=== PATIENT | female | born 1985 | race Caucasian/White ===

== ENCOUNTER → 2016-03-17 | Outpatient (CLI) | payer OTHER ==
[~2016-03-17] MED LIST: ACETAMINOPHEN TAB 325 MG TAB PO ONE; INFLIXIMAB IV ONE; LORATADINE 10 MG TAB PO ONE; SODIUM CHLORIDE 0.9% 250 ML in EMPTY BAG 1 BAG IV PRN; SODIUM CHLORIDE 0.9% 500 ML in EMPTY BAG 1 BAG IV PRN; SODIUM CHLORIDE 0.9% IV ONE
[2016-03-17 09:03] VITALS: TEMP 97.6
[2016-03-17 11:09] VITALS: BP 115/79; PULSE 76; RESP 18
== END | disposition home or self-care (01) ==
LOC: PROCWHC3 08:52
PROVIDERS: ATTEND Dermatology
DX: L40.9 Psoriasis, unspecified (principal); L40.52 Psoriatic arthritis mutilans
CPT/HCPCS: 96361; 96413; 96415; J1745

== ENCOUNTER → 2016-07-26 | Outpatient (CLI) | payer OTHER ==
[~2016-07-26] MED LIST changes: +PATIENTS OWN MED ONE
[2016-07-26 09:17] VITALS: RESP 16; TEMP 97.7
[2016-07-26 11:40] VITALS: BP 115/74; PULSE 71
== END | disposition home or self-care (01) ==
LOC: PROCWHC3 08:46
PROVIDERS: ATTEND Dermatology
DX: L40.52 Psoriatic arthritis mutilans (principal)
CPT/HCPCS: 96413; 96415

== ENCOUNTER → 2016-12-20 | Outpatient (CLI) | payer OTHER ==
[~2016-12-20] MED LIST changes: -PATIENTS OWN MED ONE; -SODIUM CHLORIDE 0.9% 250 ML in EMPTY BAG 1 BAG IV PRN
[2016-12-20 09:14] VITALS: RESP 16; TEMP 98.3
[2016-12-20] MEDS: INFLIXIMAB IV ONE ×2 (09:43→09:46)
[2016-12-20] MEDS: SODIUM CHLORIDE 0.9% IV ONE ×2 (09:43→09:46)
[2016-12-20 10:52] VITALS: BP 118/76; PULSE 90
== END | disposition home or self-care (01) ==
LOC: EDSTATUS 12-14 09:00 → PROCWHC3 08:59
PROVIDERS: ATTEND Dermatology
DX: L40.0 Psoriasis vulgaris (principal); L40.59 Other psoriatic arthropathy
CPT/HCPCS: 96413; 96415

== ENCOUNTER → 2017-03-16 | Outpatient (CLI) | payer OTHER ==
[2017-03-16 23:23] VITALS: BP 110/66; PULSE 91; RESP 16; TEMP 98.3
== END | disposition home or self-care (01) ==
LOC: PROCWHC3 09:48
PROVIDERS: ATTEND Dermatology
DX: L40.0 Psoriasis vulgaris (principal); L40.59 Other psoriatic arthropathy
CPT/HCPCS: 96413; 96415

== ENCOUNTER → 2017-05-18 | Outpatient (CLI) | payer OTHER ==
[~2017-05-18] MED LIST changes: -INFLIXIMAB IV ONE; -SODIUM CHLORIDE 0.9% IV ONE
[2017-05-18 12:04] VITALS: RESP 16; TEMP 98.4
[2017-05-18 13:39] VITALS: BP 134/92; PULSE 93
== END | disposition home or self-care (01) ==
LOC: PROCWHC3 11:31
PROVIDERS: ATTEND Dermatology
DX: L40.0 Psoriasis vulgaris (principal)

== ENCOUNTER → 2017-07-13 | Outpatient (CLI) | payer OTHER | END | disposition home or self-care (01) | LOC: PROCWHC3 08:57 | PROVIDERS: ATTEND Dermatology | DX: Z53.9 Procedure and treatment not carried out, unspecified reason (principal) ==

== ENCOUNTER → 2018-10-09 | Outpatient (CLI) | payer OTHER ==
--- NOTE | 2018-10-09 15:00 | MR ---
MR right wrist without contrast HISTORY: Pain and swelling, scaphoid fracture Multiplanar multisequence imaging obtained through the right wrist No comparisons There is abnormal signal involving the distal radius, linear low signal is present along the metaphys is extending to the articular surface, there is intermediate signal on T1, increased signal on T2 inv olving the metaphysis somewhat diffusely. Similar signal changes are present within the scaphoid bone , findings likely represent bone contusion, microtrabecular fracture, suspect a nondisplaced intra-ar ticular fracture line along the distal radius. Scapholunate ligament, lunotriquetral ligament, triang ular fibrocartilage are intact. Flexor and extensor tendons are intact. There is fluid signal coursin g along the extensor tendons laterally which may be posttraumatic. There is some edema in the soft ti ssues dorsal to the wrist. IMPRESSION: Microtrabecular fractures, bone contusion as described involving the scaphoid, distal rad ius, there is nondisplaced intra-articular fracture of the distal radius.
== END | disposition home or self-care (01) ==
LOC: RADMRIMAIN 11:57
PROVIDERS: ATTEND Orthopaedic Surgery
DX: S52.571A Other intraarticular fracture of lower end of right radius, initial encounter for closed fracture (principal)

== ENCOUNTER → 2019-03-02 | Outpatient (CLI) | payer OTHER ==
--- NOTE | 2019-03-03 11:53 | US ---
EXAMINATION TYPE: US thyroid st tissue head/neck DATE OF EXAM: 03/02/2019 COMPARISON: NONE CLINICAL HISTORY: R13.10 Dysphagia. Dysphagia GLAND SIZE: Right Lobe: 5.5 x 1.4 x 1.9 cm Overall Parenchyma: homogenous Left Lobe: 5.4 x 1.4 x 1.8 cm Overall Parenchyma: homogeneous Isthmus Thickness: .2 cm NODULES RIGHT: # of nodules measured on right: A couple sub centimeter cystic areas. LEFT: # of nodules measured on left: 0 ISTHMUS: # of nodules measured in the isthmus: 0 Bilateral neck scanned, no evidence of lymphadenopathy. Echotexture is relatively homogenous and symmetric within the thyroid gland. IMPRESSION: There are likely to small colloid cysts subcentimeter in size in the right lobe of thyroid
== END | disposition home or self-care (01) ==
LOC: RADUSWWP 15:41
PROVIDERS: ATTEND Family Medicine
DX: E04.2 Nontoxic multinodular goiter (principal)
CPT/HCPCS: 76536

== ENCOUNTER → 2019-08-27 | Outpatient (CLI) | payer BC ==
--- NOTE | 2019-08-27 21:41 | MR ---
EXAMINATION TYPE: MR shoulder RT wo con DATE OF EXAM: 08/27/2019 COMPARISON: No plain film submitted for correlation HISTORY: Rt shoulder pain x 1 month TECHNIQUE: Multiplanar, multisequence imaging of the right shoulder is performed without contrast. FINDINGS: There is motion on the exam. Rotator Cuff: There is some increased signal associated with the rotator cuff tendon Acromioclavicular Joint: Intact, some mild arthropathy may be present, some fluid signal is noted Glenohumeral Joint: Intact Labrum: Suspect a Austin complex is present.. Biceps Tendon: The long head of biceps is in normal location within bicipital groove, some fluid sign al present along the tendon. Bone marrow signal: No focal abnormal marrow signal is appreciated. Other: Some fluid signal present in the subacromial subdeltoid bursa IMPRESSION: Suspect biceps tendinosis, tendinosis of the rotator cuff tendon. Additional findings above.
== END | disposition home or self-care (01) ==
LOC: RADMRIMAIN 18:56
PROVIDERS: ATTEND Family Medicine
DX: M25.811 Other specified joint disorders, right shoulder (principal)

== ENCOUNTER → 2020-11-21 | Outpatient (CLI) | payer BC ==
--- NOTE | 2020-11-21 10:22 | US ---
EXAMINATION TYPE: US thyroid st tissue head/neck DATE OF EXAM: 11/21/2020 COMPARISON: NONE CLINICAL HISTORY: R22.0 Swelling/mass/palpable abnormality head/neck. dysphagia GLAND SIZE: Right Lobe: 5.6 x 1.9 x 2.2 cm Overall Parenchyma: heterogenous Left Lobe: 5.6 x 1.6 x 1.8 cm Overall Parenchyma: heterogeneous Isthmus Thickness: 0.3 cm NODULES RIGHT: # of nodules measured on right: 0 - subcentimeter nodules noted LEFT: # of nodules measured on left: 0 ISTHMUS: # of nodules measured in the isthmus: 0 Bilateral neck scanned, no evidence of lymphadenopathy. IMPRESSION: Thyridomegally
--- NOTE | 2020-11-21 10:39 | FL ---
EXAMINATION TYPE: FL UGI air DATE OF EXAM: 11/21/2020 10:29 AM COMPARISON: NONE CLINICAL HISTORY: R13.10 Dysphagia A total of 58 seconds of fluoroscopic time was utilized during procedure and 17 images obtained. Preliminary view of the abdomen reveals a normal bowel gas pattern. Mild degenerative changes are not ed of the thoracolumbar spine. Upper GI examination was performed according to the air contrast techn ique. Barium and effervescent crystal was swallowed without difficulty or delay. Esophageal perista lsis and motility are within normal limits. There is moderate gastroesophageal reflux during the cour se of the examination. No evidence for esophagitis. Small reducible hiatal hernia identified. The sto mach has a normal appearance in terms of its size, shape and location. No gastric filling defects or ulcer craters are seen. The duodenal bulb and sweep are also free of intraluminal lesion or ulcer c rater. IMPRESSION: There is moderate gastroesophageal reflux during the course of the examination. No evidence for esoph agitis. Small reducible hiatal hernia identified.
== END | disposition home or self-care (01) ==
LOC: RADUSWWP 09:00
PROVIDERS: ATTEND Family Medicine
DX: E01.0 Iodine-deficiency related diffuse (endemic) goiter (principal)
CPT/HCPCS: 74246; 76536

== ENCOUNTER 2022-12-12 10:29 | Emergency (ER) | payer BC ==
[2022-12-12] MEDS ORDERED: SODIUM CHLORIDE 0.9% 1,000 ML IV STA (11:12)
[2022-12-12] MEDS ORDERED: KETOROLAC 15 MG/ML 1 ML VIAL IVP STA (11:53)
--- NOTE | 2022-12-12 11:54 | ED ---
General Adult HPI - General Chief complaint: Headache Stated complaint: High Heart Rate Time Seen by Provider: 12/12/22 11:07 Source: patient Mode of arrival: ambulatory Limitations: no limitations - History of Present Illness Initial comments: 37-year-old female with a past medical history significant for lysis on infliximab presenting to the ED with a chief complaint of URI symptoms. Patient states for the past 3 days has had headache and congestion. Has been using Cordiicin with minimal relief of symptoms. She then went to an urgent care today who sent the patient to this facility for further evaluation due to elevated heart rate. Patient notes that she has not taken her venlafaxine or losartan yet today. No chest pain or shortness of breath. No other complaints. - Related Data Home Medications Medication Instructions Recorded Confirmed DULoxetine HCL [Cymbalta] 60 mg PO DAILY 04/23/15 07/13/17 Non Formulary Drug 1 tab PO DIRECTED 05/18/17 07/13/17 Cephalexin [Keflex] 500 mg PO BID 07/13/17 07/13/17 Fish Oil/Dha/Epa [Fish Oil 1,200 1 each PO DAILY 07/13/17 07/13/17 mg Fish Oil] Iron 27 mg PO DAILY 07/13/17 07/13/17 Allergies Allergy/AdvReac Type Severity Reaction Status Date / Time morphine Allergy Rash/Hives Verified 12/12/22 10:46 naproxen [From Naprosyn] Allergy Rash/Hives Verified 12/12/22 10:46 Review of Systems ROS Statement: Those systems with pertinent positive or pertinent negative responses have been documented in the HPI. ROS Other: All systems not noted in ROS Statement are negative. Past Medical History Past Medical History: Hypertension, Skin Disorder Additional Past Medical History / Comment(s): PSORIATIC ARTHRITIS History of Any Multi-Drug Resistant Organisms: None Reported Past Surgical History: Orthopedic Surgery Past Anesthesia/Blood Transfusion Reactions: No Reported Reaction Past Psychological History: Depression Smoking Status: Never smoker Past Alcohol Use History: Rare Past Drug Use History: None Reported General Exam Limitations: no limitations General appearance: alert, in no apparent distress Eye exam: Present: PERRL, EOMI Neck exam: Present: other (Negative Kernig or Brudzinski sign) Respiratory exam: Present: normal lung sounds bilaterally Cardiovascular Exam: Present: regular rate, normal rhythm GI/Abdominal exam: Present: soft Extremities exam: Present: other (Strength and sensation equal and intact in bilateral upper and lower extremities.) Neurological exam: Present: alert, oriented X3, CN II-XII intact (Finger to nose, rapid alternating hand movements, [id number] intact.) Course Vital Signs 12/12/22 12/12/22 12/12/22 10:40 12:10 13:02 Temperature 98.1 F 99.1 F Pulse Rate 118 H 101 H 106 H Respiratory 18 18 17 Rate Blood Pressure 141/101 143/102 131/88 O2 Sat by Pulse 98 97 100 Oximetry Medical Decision Making - Medical Decision Making Was pt. sent in by a medical professional or institution (, PA, CLIENT ADVISOR, urgent care, hospital, or care home...) When possible be specific @ -[facility] urgent care Did you speak to anyone other than the patient for history (EMS, parent, family, police, friend...)? What history was obtained from this source @ -No Did you review nursing and triage notes (agree or disagree)? Why? @ -I reviewed and agree with nursing and triage notes Were old charts reviewed (outside hosp., previous admission, EMS record, old EKG, old radiological studies, urgent care reports/EKG's, care home records)? Report findings @ -No old charts were reviewed Differential Diagnosis (chest pain, altered mental status, abdominal pain women, abdominal pain men, vaginal bleeding, weakness, fever, dyspnea, syncope, headach e, dizziness, GI bleed, back pain, seizure, CVA, palpatations, mental health, musculoskeletal)? @ -Differential Headache: Migraine, tension, cluster, carbon monoxide, central venous thrombosis, pension karma temporal arteritis, acute closure glaucoma, intercranial hemorrhage, mastoiditis, sinusitis, head injury, this is not meant to be an all-inclusive list. EKG interpreted by me (3pts min.). @ -None X-rays interpreted by me (1pt min.). @ -None done CT interpreted by me (1pt min.). @ -None done U/S interpreted by me (1pt. min.). @ -None done What testing was considered but not performed or refused? (CT, X-rays, U/S, labs)? Why? @ -Chest x-ray was considered to rule out pneumonia however at this time patient has no complaints of cough. Brain CT was considered due to headache jarred ng more severe compared to history of headaches however neurologic exam today unremarkable and patient had significant improvement of pain with Toradol and acetaminophen. What meds were considered but not given or refused? Why? @ -None Did you discuss the management of the patient with other professionals (professionals i.e. , PA, CLIENT ADVISOR, lab, RT, psych nurse, family welfare social work professor, pet care attendant, teacher, hazard mitigation officer, bilingual patient support caseworker)? Give summary @ -No Was smoking cessation discussed for >3mins.? @ -No Was critical care preformed (if so, how long)? @ -No Were there social determinants of health that impacted care today? How? (Homelessness, low income, unemployed, alcoholism, drug addiction, transportation, low edu. Level, literacy, decrease access to med. care, fci, rehab)? @ -No Was there de-escalation of care discussed even if they declined (Discuss DNR or withdrawal of care, Hospice)? DNR status @ -No What co-morbidities impacted this encounter? (DM, HTN, Smoking, COPD, CAD, Cancer, CVA, ARF, Chemo, Hep., AIDS, mental health diagnosis, sleep apnea, morbid obesity)? @ -Psoriasis on Infliximab Was patient admitted / discharged? Hospital course, mention meds given and route, prescriptions, significant lab abnormalities, going to OR and other pertinent info. @ -Discharge 37-year-old female with past medical history significant for psoriasis on infliximab presents to the ED with a chief complaint of headache and congestion ongoing for the past 2 or 3 days. Cephid panel negative. Patient had significant improvement of headache with Toradol and acetaminophen. Patient discharged home in stable condition. Symptoms likely viral in nature. Discussed return precautions with patient who verbalized agreement. Undiagnosed new problem with uncertain prognosis? @ -No Drug Therapy requiring intensive monitoring for toxicity (Heparin, Nitro, Insulin, Cardizem)? @ -No Were any procedures done? @ -No Diagnosis/symptom? @ -Upper respiratory infection Acute, or Chronic, or Acute on Chronic? @ -Acute Uncomplicated (without systemic symptoms) or Complicated (systemic symptoms)? @ -Uncomplicated Side effects of treatment? @ -No Exacerbation, Progression, or Severe Exacerbation? @ -No Poses a threat to life or bodily function? How? (Chest pain, [place], [place], pneumonia, PE, COPD, DKA, ARF, appy, cholecystitis, CVA, Diverticulitis, Homicidal, Suicidal, threat to staff... and all critical care pts) @ -No - Lab Data Lab Results 12/12/22 Range/Units 11:59 Influenza Type A (PCR) Not Detected (Not Detectd) Influenza Type B (PCR) Not Detected (Not Detectd) RSV (PCR) Not Detected (Not Detectd) SARS-CoV-2 (PCR) Not Detected (Not Detectd) Disposition Clinical Impression: Upper respiratory infection Disposition: HOME SELF-CARE Condition: Good Instructions (If sedation given, give patient instructions): Upper Respiratory Infection (ED) Additional Instructions: Please return to the Emergency Department if symptoms worsen or any other concerns. Is patient prescribed a controlled substance at d/c from ED?: No Referrals: Chung Mejia DO [Primary Care Provider] - 1-2 days Time of Disposition: 13:42
[2022-12-12] MEDS ORDERED: ACETAMINOPHEN TAB 500 MG TAB PO STA (12:57)
[2022-12-12 13:13] VITALS: BP 131/88; PULSE 106; RESP 17
[2022-12-12 13:58] VITALS: TEMP 98.5
== END 2022-12-12 13:51 | disposition home or self-care (01) ==
LOC: EC 10:29
DX: J06.9 Acute upper respiratory infection, unspecified (principal); I10 Essential (primary) hypertension; Z86.59 Personal history of other mental and behavioral disorders; Z88.5 Allergy status to narcotic agent; Z88.6 Allergy status to analgesic agent; Z20.822 Contact with and (suspected) exposure to COVID-19
CPT/HCPCS: 87636; 99284; 96374; 96361; J1885

== ENCOUNTER → 2023-01-12 | Outpatient (CLI) | payer BC ==
--- NOTE | 2023-01-14 09:22 | MR ---
EXAMINATION TYPE: MR brain wo con DATE OF EXAM: 01/12/2023 COMPARISON: NONE HISTORY: 37-year-old female H57.02, anisocoria. Migraine headache, enlarged eye. TECHNIQUE: Multiplanar, multisequence images of the brain and brainstem were acquired without IV con trast. Diffusion weighted imaging is performed. FINDINGS: No evidence for acute infarction, hemorrhage, mass, mass effect, midline shift, herniation, effacemen t of basal cisterns, or extra-axial fluid collection. The ventricles and sulci are age-appropriate. Major intracranial flow voids are intact. T2/FLAIR weighted sequences show couple punctate bright signal foci in the subcortical white matter r egion of the left cerebral. In the right cerebral hemisphere, approximately 5-10 foci are present me asuring up to 3 mm. Midline structures demonstrate normal morphology. The craniocervical junction is normal. Large 3.2 cm mucosal retention cyst right maxillary sinus. Scattered mild mucosal thickening througho ut the remainder of the paranasal sinuses. Globes appear intact. Small amount of fluid scattered with in the right mastoid air cells. IMPRESSION: 1. A couple punctate bright signal foci in the subcortical white matter of the left cerebral hemisphe re and approximately 5-10 in the right hemisphere. Given the reported history, consider foci of ische anatoly demyelination related to chronic migraines. Other demyelinating disease is in the differential as well. 2. No acute intracranial abnormal seen. 3. Large 3.2 cm mucosal retention cyst right maxillary sinus. Additional mild chronic paranasal sinus disease elsewhere. 4. Some scattered fluid in the right mastoid air cells. Correlate for any mastoid pain to exclude mas toiditis.
== END | disposition home or self-care (01) ==
LOC: RADMRIMAIN 08:12
PROVIDERS: ATTEND Family Medicine
DX: H57.02 Anisocoria (principal); H74.8X1 Other specified disorders of right middle ear and mastoid; G43.909 Migraine, unspecified, not intractable, without status migrainosus; J34.89 Other specified disorders of nose and nasal sinuses
CPT/HCPCS: 70551

== ENCOUNTER → 2023-06-16 | Outpatient (CLI) | payer BC ==
[2023-06-16 14:46] LABS: HCT 46.6 % (37.2-46.3); HGB 15.2 g/dL (12.0-15.0); MCH 27.2 pg (27.0-32.0); MCHC 32.6 g/dL (32.0-37.0); MCV 83.4 FL (80.0-97.0); Mean Platelet Volume 9.5 FL (9.5-12.2); NRBC Per 100 WBC 0 X 10*3/uL (0.00-0.01); Platelet Count 380 X 10*3/uL (140-440); RBC 5.59 X 10*6/uL (4.10-5.20); RDW 12.9 % (11.5-14.5); WBC 5.71 X 10*3/uL (4.50-10.00)
[2023-06-16 15:25] LABS: ALT 61 U/L (8-44); AST 41 U/L (13-35); Albumin 4.6 g/dL (3.8-4.9); Albumin/Globulin Ratio 1.39 Ratio (1.60-3.17); Alkaline Phosphatase 80 U/L (41-126); BUN/Creat Ratio 12.44 Ratio (12.00-20.00); Blood Urea Nitrogen 11.2 mg/dL (9.0-27.0); Calcium 9.8 mg/dL (8.7-10.3); Carbon Dioxide 27.8 mmol/L (21.6-31.8); Chloride 101 mmol/L (96-109); Chol/HDL Ratio 3.72 Ratio; Globulin 3.3 g/dL (1.6-3.3); Glucose 108 mg/dL (70-110); LDL Cholesterol,Calculated 160.2 mg/dL (0.0-131.0); Potassium 4.5 mmol/L (3.5-5.5); Sodium 139 mmol/L (135-145); Total Bilirubin 0.6 mg/dL (0.3-1.2); Total Protein 7.9 g/dL (6.2-8.2)
== END | disposition home or self-care (01) ==
LOC: LABWHC1 08:58
PROVIDERS: ATTEND Family Medicine
DX: Z00.00 Encounter for general adult medical examination without abnormal findings (principal); F43.9 Reaction to severe stress, unspecified; R73.03 Prediabetes
CPT/HCPCS: 36415; 80053; 80061; 82533; 83036; 84443; 84481; 85027

== ENCOUNTER → 2023-07-25 | Outpatient (CLI) | payer BC | END | disposition home or self-care (01) | LOC: LABWHC1 08:28 | PROVIDERS: ATTEND Dermatology | DX: Z12.83 Encounter for screening for malignant neoplasm of skin (principal); D22.5 Melanocytic nevi of trunk; L40.0 Psoriasis vulgaris; L40.59 Other psoriatic arthropathy; L81.4 Other melanin hyperpigmentation; L82.1 Other seborrheic keratosis; Z71.89 Other specified counseling | CPT/HCPCS: 36415; 86480 ==